=== PATIENT | male | born 1955 | race Hispanic/Latino ===

== ENCOUNTER 2020-11-03 10:23 | Emergency (ER) | payer OTHER ==
--- NOTE | 2020-11-03 13:30 | RAD REPORT ---
EXAM DESCRIPTION: RAD - Ankle Right 3 View - 11/03/2020 1:16 pm CLINICAL HISTORY: Right ankle pain status post injury FINDINGS: No fracture or dislocation is seen. Vascular calcifications
--- NOTE | 2020-11-03 13:34 | RAD REPORT ---
EXAM DESCRIPTION: RAD - Foot Right 3 View - 11/03/2020 1:17 pm CLINICAL HISTORY: Right foot pain status post injury FINDINGS: Moderately to markedly displaced oblique fracture mid to distal fifth metatarsal. No dislo cation
--- NOTE | 2020-11-03 15:20 | ER ---
Nurse's Notes [facility] Name: Gama Solis Age: 65 yrs Sex: Male : 1955 Arrival Date: 11/03/2020 Time: 10:35 Bed 30 Private MD: Diagnosis: Fracture of fifth metatarsal bone Presentation: 11/03 11:21 Chief complaint: Patient states: my RIGHT foot rolled Monday night. my ankle just gave tw2 out on me. i want to make sure its not broken. Coronavirus screen: At this time, the client does not indicate any symptoms associated with coronavirus-19. Ebola Screen: Patient denies travel to an Ebola-affected area in the 21 days before illness onset. Initial Sepsis Screen: Does the patient meet any 2 criteria? No. Patient's initial sepsis screen is negative. Does the patient have a suspected source of infection? No. Patient's initial sepsis screen is negative. Risk Assessment: Do you want to hurt yourself or someone else? Patient reports no desire to harm self or others. Onset of symptoms was November 03, 2020. 11:21 Method Of Arrival: Ambulatory tw2 11:21 Acuity: ANA 4 tw2 Triage Assessment: 11:24 General: Appears in no apparent distress. well groomed, Behavior is calm, cooperative, tw2 appropriate for age. Pain: Complains of pain in right foot and ankle. Musculoskeletal: Range of motion: intact in all extremities. Injury Description: rolled ankle. Historical: - Allergies: 11:23 No Known Allergies; tw2 - Home Meds: 11:23 None [Active]; tw2 - PMHx: 11:23 None; tw2 - PSHx: 11:23 None; tw2 - Immunization history:: Adult Immunizations. - Social history:: Smoking status: . Screenin:41 Abuse screen: Denies threats or abuse. Nutritional screening: No deficits noted. kg Tuberculosis screening: No symptoms or risk factors identified. Fall Risk Fall in past 12 months (25 points). No secondary diagnosis (0 pts). No IV (0 pts). Ambulatory Aid- None/Bed Rest/Nurse Assist (0 pts). Gait- Weak (10 pts.). Mental Status- Oriented to own ability (0 pts). Total Conteh Fall Scale indicates Low Risk Score (25-44 pts). Assessment: 12:37 General: Appears in no apparent distress. General: Behavior is calm, cooperative, kg appropriate for age, quiet. Pain: Denies pain. Pain: Complains of pain in right ankle, lateral aspect of right foot, right Achilles, right heel, medial aspect of right foot, anterior aspect of right ankle and dorsum of right foot Pain currently is 6 out of 10 on a pain scale. at worst was 10 out of 10 on a pain scale. level that patient reports is acceptable is 3 out of 10 on a pain scale. Quality of pain is described as aching, pulsating, Pain began 2-3 days ago. Pain: Complains of pain in right ankle, lateral aspect of right foot, right Achilles, right heel, medial aspect of right foot, anterior aspect of right ankle and dorsum of right foot. Neuro: No deficits noted. Cardiovascular: No deficits noted. Respiratory: No deficits noted. GI: No deficits noted. : No deficits noted. EENT: No deficits noted. Derm: No deficits noted. Musculoskeletal: Swelling. Musculoskeletal: Swelling present in right ankle, lateral aspect of right foot, right Achilles, right heel, medial aspect of right foot, anterior aspect of right ankle and dorsum of right foot. Vital Signs: 11:21 Pulse 93; Resp 17; Temp 97.9(TE); Pulse Ox 99% on R/A; Weight 90.72 kg (R); Height 5 tw2 ft. 6 in. (167.64 cm); Pain 0/10; 11:23 BP 188 / 85; tw2 12:40 BP 208 / 100; Pulse 92; Resp 17; Pulse Ox 96% on R/A; Pain 6/10; kg 13:40 BP 226 / 100; Pulse 86; Resp 18; Pulse Ox 95% on R/A; kg 11:21 Body Mass Index 32.28 (90.72 kg, 167.64 cm) tw2 11:21 "only when i walk i feel a little bit" tw2 ED Course: 10:35 Patient arrived in ED. ds1 10:49 Triage completed. tw2 10:52 Arm band placed on. tw2 12:12 Juan Villanueva PA is PHCP. jmm 12:12 Marcos Abrams MD is Attending Physician. jmm 12:23 Miya Maravilla is Primary Nurse. kg 12:41 Patient has correct armband on for positive identification. Fall risk band placed. Bed kg in low position. Call light in reach. Side rails up X 1. 13:16 XRAY Ankle RIGHT 3 view In Process Unspecified. EDMS 13:17 XRAY Foot RIGHT 3 View In Process Unspecified. EDMS 15:18 Mike Bar MD is Referral Physician. [facility] 15:43 Crutch training done. Orthoglass splint: Posterior short lleg splint applied on right em1 leg. 15:49 Assist provider with fracture care of lateral aspect of right calf, right ankle, kg lateral aspect of right foot, right calf, right Achilles, right heel, medial aspect of right calf, medial aspect of right foot, right romero, anterior aspect of right ankle and dorsum of right foot Immobilized with preformed splint. 15:53 Patient did not have IV access during this emergency room visit. kg Administered Medications: No medications were administered Outcome: 15:19 Discharge ordered by MD. [facility] 15:51 Discharged to home ambulatory, with family. kg 15:51 Condition: good 15:51 Discharge instructions given to patient, family, Instructed on discharge instructions, follow up and referral plans. Demonstrated understanding of instructions, follow-up care. 15:54 Patient left the ED. kg Signatures: Dispatcher [employer] EDMS Juan Villanueva PA PA jmm Sanford, Demi ds1 Jeffry Terry em1 Dipti Ruby RN RN tw2 Miya Maravilla kg Corrections: (The following items were deleted from the chart) 11:12 10:46 Chief complaint: Patient states: my LEFT foot and i dont know what happened to tw2 it. i fell sort of about 3 days ago. i stepped on a shoelace and caught myself on my knees. i couldn't tell it hurt then but that is the only thing i have done that could be the problem tw2 11:12 10:46 Coronavirus screen: At this time, the client does not indicate any symptoms tw2 associated with coronavirus-19. tw2 11:12 10:46 Ebola Screen: Patient denies travel to an Ebola-affected area in the 21 days tw2 before illness onset. tw2 11:12 10:46 Initial Sepsis Screen: Does the patient meet any 2 criteria? No. Patient's tw2 initial sepsis screen is negative. Does the patient have a suspected source of infection? No. Patient's initial sepsis screen is negative. tw08 13: 10:46 Risk Assessment: Do you want to hurt yourself or someone else? Patient reports no tw2 desire to harm self or others. : 10:46 Onset of symptoms was November 03, 2020 tw: 10:46 Method Of Arrival: Wheelchair tw2 : 10:46 Pulse 80bpm; Resp 18bpm; Pulse Ox 100% RA; Temp 97.9F Temporal; 84.37 kg tw2 Reported; Height 6 ft. 2 in.; BMI: 23.8; Pain 4/10; 10:46 Acuity: ANA 3 tw 10:51 General: Appears in no apparent distress. slender, well groomed, Behavior is tw2 calm, cooperative, appropriate for age, 10:51 Pain: Complains of pain in left foot tw: 10:51 Musculoskeletal: Range of motion: intact in all extremities, Reports pain in left tw2 side left foot : 10:51 Injury Description: from fall 11: 10:49 Social history: Smoking status: : 10:51 Allergies: No Known Allergies; : 10:51 Home Meds: aspirin 81 mg Oral chew 1 tab once daily; : 10:51 Home Meds: metoprolol succinate 25 mg oral Tb24 1 tab once daily; : 10:51 Home Meds: clopidogrel 75 mg oral tab 1 tab once daily; : 10:51 Home Meds: furosemide 40 mg Oral tab 1 tab once daily; : 10:51 Home Meds: simvastatin 20 mg Oral tab 1 tab once daily; 10:51 PMHx: Hypertension; : 10:51 PMHx: Hyperlipidemia; : 10:51 PSHx: Mitral valve repaired; 10:51 PSHx: Appendectomy; :14 10:51 PSHx: inguinal hernia; 11:14 10:51 PSHx: laceration to neck as teen; 11:14 10:53 BP 143 / 53;
--- NOTE | 2020-11-03 15:20 | EDPHYS ---
Physician Documentation [facility] Name: Gama Solis Age: 65 yrs Sex: Male : 1955 Arrival Date: 11/03/2020 Time: 10:35 Bed 30 Private MD: ED Physician Marcos Abrams HPI: 11/03 12:14 This 65 yrs old Male presents to ER via Ambulatory with complaints of Foot jmm Injury. 12:14 The patient presents with an injury, pain. Onset: The symptoms/episode began/occurred jmm acutely, just prior to arrival. Modifying factors: The symptoms are alleviated by nothing. the symptoms are aggravated by nothing. The patient has not experienced similar symptoms in the past. Patient states he rolled his right foot this past Monday. Patient states he still able to ambulate. Denies other injury. . Historical: - Allergies: 11:23 No Known Allergies; tw2 - Home Meds: 11:23 None [Active]; tw2 - PMHx: 11:23 None; tw2 - PSHx: 11:23 None; tw2 - Immunization history:: Adult Immunizations. - Social history:: Smoking status: . ROS: 12:14 Constitutional: Negative for fever, chills, and weight loss, Eyes: Negative for injury, jmm pain, redness, and discharge, Cardiovascular: Negative for chest pain, palpitations, and edema, Respiratory: Negative for shortness of breath, cough, wheezing, and pleuritic chest pain. 12:14 MS/extremity: Positive for injury or acute deformity. 12:14 Skin: Positive for ecchymosis. 12:14 All other systems are negative. Exam: 12:14 Constitutional: This is a well developed, well nourished patient who is awake, alert, jmm and in no acute distress. Head/Face: atraumatic. Eyes: EOMI, no conjunctival erythema appreciated ENT: Moist Mucus Membranes Neck: Trachea midline, Supple Chest/axilla: Normal chest wall appearance and motion. Cardiovascular: Regular rate and rhythm. No edema appreciated Respiratory: Normal respirations, no respiratory distress appreciated Abdomen/GI: Non distended, soft Back: Normal ROM Skin: General appearance color normal 12:14 Neuro: Awake and alert, normal gait Psych: Behavior is normal, Mood is normal, Patient is cooperative and pleasant 12:14 Musculoskeletal/extremity: ecchymosis noted to the right foot, full dorsalis pulse, compartments are soft, NVI. 12:14 Skin: Appearance: Color: ecchymosis. Vital Signs: 11:21 Pulse 93; Resp 17; Temp 97.9(TE); Pulse Ox 99% on R/A; Weight 90.72 kg (R); Height 5 tw2 ft. 6 in. (167.64 cm); Pain 0/10; 11:23 BP 188 / 85; tw2 12:40 BP 208 / 100; Pulse 92; Resp 17; Pulse Ox 96% on R/A; Pain 6/10; kg 13:40 BP 226 / 100; Pulse 86; Resp 18; Pulse Ox 95% on R/A; kg 11:21 Body Mass Index 32.28 (90.72 kg, 167.64 cm) tw2 11:21 "only when i walk i feel a little bit" tw2 MDM: 12:14 Patient medically screened. [facility] 15:17 Data reviewed: vital signs, nurses notes. Counseling: I had a detailed discussion with dayana the patient and/or guardian regarding: the historical points, exam findings, and any diagnostic results supporting the discharge/admit diagnosis, radiology results, the need for outpatient follow up, to return to the emergency department if symptoms worsen or persist or if there are any questions or concerns that arise at home. ED course: Patient advised to follow up with pcp and otherwise given strict return precautions. Patient understood and agrees with the plan of care. . 11/03 12:35 Order name: XRAY Foot RIGHT 3 View; Complete Time: 13:52 11/03 12:35 Order name: XRAY Ankle RIGHT 3 view; Complete Time: 13:52 11/03 13:57 Order name: Posterior Leg Splint; Complete Time: 15:42 dayana 11/03 13:57 Order name: Crutches; Complete Time: 15:42 dayana Administered Medications: No medications were administered Disposition: 11/04 11:21 Co-signature as Attending Physician, Marcos Abrams MD I agree with the assessment and gunner plan of care. Disposition: 11/03/20 15:19 Discharged to Home. Impression: Fracture of fifth metatarsal bone. - Condition is Stable. - Discharge Instructions: Metatarsal Fracture. - Medication Reconciliation Form, Thank You Letter, Antibiotic Education, Prescription Opioid Use form. - Follow up: Mike Bar MD; When: 2 - 3 days; Reason: Recheck today's complaints, Continuance of care, Re-evaluation by your physician. Signatures: Dispatcher [employer] EDMarcos Johnson MD MD cha Mickail, Joel, PA PA jmm Wise, Tara RN RN tw2 Brianna Maravillaen zeke Corrections: (The following items were deleted from the chart) 11/03 11:14 10:49 Social history: Smoking status: 10:51 Allergies: No Known Allergies; 10:51 Home Meds: aspirin 81 mg Oral chew 1 tab once daily; 10:51 Home Meds: metoprolol succinate 25 mg oral Tb24 1 tab once daily; 10:51 Home Meds: clopidogrel 75 mg oral tab 1 tab once daily; 10:51 Home Meds: furosemide 40 mg Oral tab 1 tab once daily; 10:51 Home Meds: simvastatin 20 mg Oral tab 1 tab once daily; 10:51 PMHx: Hypertension; : 10:51 PMHx: Hyperlipidemia; : 10:51 PSHx: Mitral valve repaired; : 10:51 PSHx: Appendectomy; : 10:51 PSHx: inguinal hernia; : 10:51 PSHx: laceration to neck as teen; 15:54 15:19 11/03/2020 15:19 Discharged to Home. Impression: Fracture of fifth metatarsal kg bone. Condition is Stable. Forms are Medication Reconciliation Form, Thank You Letter, Antibiotic Education, Prescription Opioid Use. Follow up: iMke Bar; When: 2 - 3 days; Reason: Recheck today's complaints, Continuance of care, Re-evaluation by your physician. dayana
[2020-11-03 16:00] VITALS: TEMP 97.9
[2020-11-03 16:04] VITALS: BP 226/100; O2SAT 95
== END 2020-11-03 15:54 | disposition home or self-care (01) ==
LOC: ER 10:23
PROC: 2W3QX1Z Immobilization of Right Lower Leg using Splint (ICD-10-PCS; principal; 2020-11-03)
DX: S92.351A Displaced fracture of fifth metatarsal bone, right foot, initial encounter for closed fracture (principal)
CPT/HCPCS: 99284

== ENCOUNTER 2022-07-27 06:10 | Day surgery (SDC) | payer OTHER ==
[2022-07-26 15:53] LABS: Absolute Lymphocytes (CBC) 3.5 K/uL (0.7-4.9); Hematocrit 38.6 % (39.6-49.0); Lymphocytes % 39.4 % (15.3-44.8); MCV 87.2 fL (80-100); MPV 6.8 fL (7.6-11.3); RBC Red Blood Cell Count 4.43 M/uL (4.33-5.43)
--- NOTE | 2022-07-26 15:53 | RAD REPORT ---
EXAM DESCRIPTION: Kasia Hayden And Sophie (2 Views)07/26/2022 3:45 pm CLINICAL HISTORY: Preop for hernia repair COMPARISON: None FINDINGS: The lungs appear clear of acute infiltrate. The heart appears borderline enlarged on the lateral view IMPRESSION: No acute abnormalities displayed
[2022-07-26 16:03] LABS: Potassium 4.3 mmol/L (3.5-5.1)
[2022-07-27] MEDS ORDERED: NA CHLORIDE 0.9% 1,000 ML ONE (06:44)
[2022-07-27] MEDS ORDERED: LIDOCAINE 2% MPF 5 ML VIAL ONE (06:44)
[2022-07-27] MEDS ORDERED: KETOROLAC 30 MG/ML INJ ONE (06:44)
[2022-07-27] MEDS ORDERED: MIDAZOLAM HCL 2 MG/2 ML INJ ONE (06:44)
[2022-07-27] MEDS ORDERED: dexAMETHasone 10 MG/ML VIAL ONE (06:44)
[2022-07-27] MEDS ORDERED: ROCURONIUM 50 MG/5 ML VIAL IV ONE (06:44)
[2022-07-27] MEDS ORDERED: CEFAZOLIN SODIUM 1 GM/VIAL ONE (06:44)
[2022-07-27] MEDS ORDERED: FENTANYL CITR 100 MCG/2 ML ONE (06:44)
[2022-07-27] MEDS ORDERED: propofoL 200 MG/20 ML VIAL IV ONE (06:44)
[2022-07-27] MEDS ORDERED: ONDANSETRON 4 MG/2 ML VIAL ONE (06:47)
[2022-07-27] MEDS ORDERED: GLYCOPYRROLATE 0.2 MG/ML SYR ONE ×2 (08:26→08:39)
[2022-07-27] MEDS ORDERED: NEOSTIGMINE 1 MG/ML -5 ML ONE (08:39)
--- NOTE | 2022-07-27 08:40 | P.BOP ---
Preoperative diagnosis: incarcerated umbilical hernia Postoperative diagnosis: same , intrabdominal adhesions Primary procedure: 1. Laparoscopic repair of incarcerated umbilical hernia(4 cm) with mesh Secondary procedure: 2. Laparoscopic lysis of adhesions Residential Direct Support Professional: CHICHO PIKE (COMMERCIAL PORTFOLIO MANAGER) Estimated blood loss: <10cc Specimen: hernia sac and incarcerated omemtum Findings: as above Anesthesia: General Complications: None Implants: ventralight ST with echo Ps Transferred to: Recovery Room Condition: Good
[2022-07-27] MEDS ORDERED: Mastisol Adhesive Liq ONE (08:46)
[2022-07-27] MEDS ORDERED: Ringers Lactate 0 ML IV ONE (09:05)
[2022-07-27 09:54] VITALS: BP 124/68; TEMP 97; O2SAT 100
[2022-07-27] MEDS ORDERED: HYDROCODONE/APAP 10/325 TAB ONE (10:16)
--- NOTE | 2022-07-27 16:06 | DS ---
Date of Discharge: 07/27/2022 Diagnosis: Incarcerated umbilical hernia and intraabdominal adhesions. Procedure: Laparoscopic repair of incarcerated umbilical hernia with mesh and laparoscopic lysis of adhesions. Disposition: Home. Activity: As tolerated. No heavy lifting. Plan: Follow up in my office in 1 week. Call for appointment at [phone]. Keep area intact until n ext visit. EDSON/BRADY Voice ID: [id number] Report ID: [id number]
--- NOTE | 2022-07-27 16:06 | OP ---
Date of Procedure: 07/27/2022 Surgeon: Monico Terry MD Portable Irrigation Operator: Dominique Patel. Preoperative Diagnosis: Incarcerated tender umbilical hernia. Postoperative Diagnoses: Incarcerated tender umbilical hernia plus intraabdominal adhesions. Procedures: 1.Laparoscopic repair of incarcerated umbilical hernia with mesh. The defect is about approximately 4 cm. 2.Laparoscopic lysis of adhesions. Estimated Blood Loss: Less than 10 mL. Specimen: Hernia sac, incarcerated omentum. Findings: The patient has incarcerated omentum that cannot be reduced, so we have to ligate that ome ntum. Hernia sac was removed. The patient has intraabdominal adhesions from omentum to the anterior abdominal wall that has to be resected with the help of LigaSure. Anesthesia: General plus local. Implant: Ventralight ST mesh with Echo Positioning System about 11 cm. Complications: None. Indication: This is the case of a 66-year-old patient, who comes to us with a tender incarcerated um bilical hernia. Benefits, alternatives, and risks of repair fully explained, which include, but not limited to infection, bleeding, damage to adjacent structures, anesthesia complication, recurrence, M I, and even . He also understands this may not relieve any symptoms. He might need more than o ne surgical intervention. He understands that we may use mesh in that region, so mesh pros and cons were discussed with the patient. All the questions were answered to his satisfaction. He signed a c onsent. He also understands the importance of no heavy lifting and also the importance of losing chi ght to diminish the chance of recurrence. Procedure In Detail: The patient was brought to the operating room, placed in supine position. Anes thesia was done without complication. Abdominal area was prepped and draped in the usual sterile fas hion. A time-out was called. Incision was made in the supraumbilical region. The incision was ayala ied down to fascia. We noticed the patient to have an incarcerated hernia, have to open the hernia s ac. There were some adhesions underneath that holding his omentum together and that will be addresse d laparoscopically. This omentum coming through have to be ligated with the help of María clamps and 0 chromic. Once we had that out and the hernia sac removed, we cleaned the fascial edges. We were able to put a Jessica trocar after placing Vicryl #1 over the entire defects. Once the Jessica trocar in, we were able to obtain pneumoperitoneum plus place two 5 mm trocars in the left and right sides. This allowed me to change the camera and then address the midline incision. We noticed adhesions st ill present about omentum to the anterior abdominal wall and those have to be taken down in order for us to put a mesh. We sized properly to overlap the defect by several cm. We also have to take down the part of the falciform ligament to be able to allow that mesh to be nice and flat against the abd ominal wall. This was done with the help of LigaSure making sure hemostasis was obtained at all time . After that and after mesh in, we decided to use a Ventralight ST mesh with Echo Positioning System , brought through the umbilical incision. The balloon was inflated making the mesh nice and flat aga inst the abdominal wall and then fixation was done with the help of SorbaFix fixation device. The ba lloon was then removed intact through 1 of the trocar sites and further fixation was done making sure we go circumferentially to avoid any bowel to go in between. Once again, we checked for hemostasis not only of the anterior abdominal wall, but also all the area of the lysis of adhesions and falcifor m ligament with no bleeding. At that moment, I proceeded to further tie the fascial edges with #1 Vi cryl in a [id number] fashion multiple times. This secured air seal. After that, we deflated pn eumoperitoneum under direct visualization, removed the trocars and then closed the subcutaneous tissu e with 3-0 chromic and the skin with 3-0 chromic. Sponge count, instrument counts correct. The patient tolerated the procedure well. The patient was sent to recovery in stabl e condition. EDSON/NICOLEL Voice ID: [id number] Report ID: [id number]
--- NOTE | 2022-07-28 18:11 | EKG ---
Test Date: 2022-07-26 Test Time: 15:19:08 [employer] Equipment Operator: LEANN MEASUREMENT RESULTS: Intervals: Rate: 85 MO: 174 QRSD: 80 QT: 378 QTc: 449 [place]: P: 53 MO: 174 QRS: 10 T: 59 INTERPRETIVE STATEMENTS: Normal sinus rhythm Normal ECG Compared to ECG 01/14/2009 21:41:24 No significant changes Electronically Signed On 07-28-22 18:10:38 EXPANSION JOINT FINISHER by Nahum Sarmiento
== END 2022-07-27 10:40 | disposition home or self-care (01) ==
LOC: OR 06:10
PROVIDERS: ATTEND Surgery
PROC: 0WUF4JZ Supplement Abdominal Wall with Synthetic Substitute, Percutaneous Endoscopic Approach (ICD-10-PCS; principal; 2022-07-27 07:30)
DX: K42.0 Umbilical hernia with obstruction, without gangrene (principal); K66.0 Peritoneal adhesions (postprocedural) (postinfection)
CPT/HCPCS: 85025; 80048; 36415; 82947 ×2; 88302; 71046; 49594; J2704; J2001; J2250; J3010; J1100; J2710; J7030; J2405; J0690; C1781; 93005; J7120

== ENCOUNTER 2022-12-07 07:24 | Day surgery (SDC) | payer OTHER ==
[2022-12-07] MEDS ORDERED: NA CHLORIDE 0.9% 1,000 ML ONE (07:46)
[2022-12-07] MEDS ORDERED: LIDOCAINE 1% MPF 5 ML VIAL ONE (08:46)
[2022-12-07] MEDS ORDERED: propofoL 200 MG/20 ML VIAL IV ONE (08:46)
[2022-12-07 09:48] VITALS: TEMP 97.4
[2022-12-07 10:29] VITALS: BP 144/70; O2SAT 98
== END 2022-12-07 10:27 | disposition home or self-care (01) ==
LOC: OR 07:24
PROVIDERS: ATTEND Surgery
PROC: 0DBK8ZX Excision of Ascending Colon, Via Natural or Artificial Opening Endoscopic, Diagnostic (ICD-10-PCS; principal; 2022-12-07 09:45)
DX: Z12.11 Encounter for screening for malignant neoplasm of colon (principal); K64.4 Residual hemorrhoidal skin tags; K64.8 Other hemorrhoids; K57.30 Diverticulosis of large intestine without perforation or abscess without bleeding; K63.5 Polyp of colon
CPT/HCPCS: 82947; 88305; 45384; J2704; J2001; J7030